=== PATIENT | male | born 1970 | race Caucasian/White ===

== ENCOUNTER 2019-01-22 20:58 | Emergency (ER) | payer OTHER ==
[~2019-01-22] VITALS: Ht 180.3 cm; Wt 64.9 kg
[~2019-01-22 20:58] MED LIST: FLEXERIL10 MG PO; HUMULIN N100 U/1 ML SQ; LAMICTAL200 MG PO; LANTI SQ; LISINOPRIL2.5 MG PO; NOVOLOG100 U/ML SC; ROC1I IV; SERTRALINE25 M1; TRAZODONE100 MG PO; TRE400 PO; VICODIN1 TA1 PO; XANAX0.5 MG PO
[2019-01-22 21:04] VITALS: Ht 180.3 cm; Wt 64.9 kg
[2019-01-22 22:03] LABS: BASOPHIL % 0.8 % (0-2); PLATELET COUNT 296 x10^3mcL (130-400); RED CELL DISTRIBUTION WIDTH 13.5 % (11.5-14.5)
[2019-01-22 22:14] LABS: CALCIUM 8.7 mg/dL (8.5-10.1); CARBON DIOXIDE 26.8 mmol/L (21-32); CHLORIDE SERUM 106 mmol/L (98-107); CREATININE SERUM 0.8 mg/dL (0.7-1.3); GFR1 > 60 mL/min; GLUCOSE SERUM 60 mg/dL (74-106); POTASSIUM SERUM 3.3 mmol/L (3.5-5.1); SODIUM SERUM 143 mmol/L (136-145)
[2019-01-22 22:18] LABS: ALBUMIN 4.2 g/dL (3.4-5.0); ALKALINE PHOSPHATASE 68 U/L (46-116); ALT/SGPT 21 U/L (16-63); AST/SGOT 8 U/L (15-37); BILIRUBIN TOTAL 0.36 mg/dL (0.20-1.00); LIPASE 56 IU/L (73-393); TOTAL PROTEIN, SERUM 7.1 g/dL (6.4-8.2)
[2019-01-23 00:38] VITALS: BP 118/68
== END 2019-01-23 00:38 | disposition home or self-care (01) ==
LOC: ED 20:58
PROVIDERS: Emergency Medicine
DX: E11.649 Type 2 diabetes mellitus with hypoglycemia without coma (principal); F17.210 Nicotine dependence, cigarettes, uncomplicated; I10 Essential (primary) hypertension; E78.00 Pure hypercholesterolemia, unspecified; F43.10 Post-traumatic stress disorder, unspecified; Z90.89 Acquired absence of other organs
CPT/HCPCS: 82962; J7030

== ENCOUNTER 2020-05-19 17:45 | Inpatient (IN) | payer OTHER ==
[~2020-05-19] VITALS: Ht 180.3 cm; Wt 66.9 kg
[~2020-05-19 17:45] MED LIST changes: -SERTRALINE25 M1; +SERTRALINE25 M1 PO
[2020-05-19 18:25] VITALS: Ht 180.3 cm; Wt 66.9 kg
--- NOTE | 2020-05-19 18:38 | NUR ---
PT BIBA FOR CHEST PAIN. 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 HE STATES SHORTNESS OF BREATH DURING PAIN EPISODE. PT CURRENTLY DENIES CHEST PAIN OR SHORTNESS OF BREATH. DENIES NAUSEA OR DIAPHORESIS. HX OF SMOKING AND HIGH CHOLESTEROL. PT IS AWAKE, ALERT, RESP E/U. ON FULL CM AND PULSE OX.
[2020-05-19 19:00] LABS: PLATELET COUNT 335 x10^3mcL (130-400); RED CELL DISTRIBUTION WIDTH 13.7 % (11.5-14.5)
[2020-05-19 19:12] LABS: CARBON DIOXIDE 27.1 mmol/L (21-32); CHLORIDE SERUM 104 mmol/L (98-107); CREATININE SERUM 0.9 mg/dL (0.7-1.3); GFR1 > 60 mL/min; GLUCOSE SERUM 94 mg/dL (74-106); POTASSIUM SERUM 3.5 mmol/L (3.5-5.1); SODIUM SERUM 141 mmol/L (136-145)
[2020-05-19 19:16] LABS: ALBUMIN 3.9 g/dL (3.4-5.0); ALKALINE PHOSPHATASE 97 U/L (46-116); ALT/SGPT 25 U/L (16-63); AST/SGOT 17 U/L (15-37); BILIRUBIN TOTAL 0.26 mg/dL (0.20-1.00); CHOLESTEROL 329 mg/dL (<200); CHOLESTEROL/HDL RATIO 7.3; HDL CHOLESTEROL 45 mg/dL (40-60); LIPASE 71 IU/L (73-393); TOTAL PROTEIN, SERUM 7.2 g/dL (6.4-8.2); TRIGLYCERIDES 151 mg/dL (<150)
--- NOTE | 2020-05-19 19:19 | NUR ---
PT REMINDED TO PROVIDE URINE SAMPLE
[2020-05-19 19:23] LABS: FREE T4 0.78 ng/dL (0.76-1.46); FREE THYROXINE INDEX 1.8 ug/dL (1.4-4.5); T4(THYROXINE) 5.7 ug/dL (4.7-13.3)
[2020-05-19 19:25] LABS: T3 TOTAL 1.05 ng/mL
--- NOTE | 2020-05-19 20:53 | NUR ---
FIRST CONTACT WITH PT AT 1925 TO ASSUME CARE, PT AAOX4, GCS15, VSS, NAD, REPORTS CP IS TOLERABLE AT THIS TIME, DENIES SOB/ABD PAIN/N/, CP IS 2/10 NONRADIATING, VSS, NAD, PT ON TELEMONITOR, SEE HEAD TO TOES ASSESSMENT FOR MROE DETAILS
--- NOTE | 2020-05-19 22:04 | NUR ---
PT RESTING IN BED WITH NO DISTRESS NOTED, VSS, UPDATED PT ON PLAN OF CARE, PT AWRE OF ADMISSION, UA SENT TO LAB
[2020-05-19 22:12] LABS: microscopic required? NO
[2020-05-19 22:39] LABS: UA SPECIFIC GRAVITY 1.015 (1.005-1.035); urine erythrocyte NEGATIVE (NEGATIVE)
--- NOTE | 2020-05-19 23:38 | NUR ---
VSS,NAD, RESTING IN BED COMFORTABLE, DENIES SOB/CP AT THIS TIME, AWAITS FOR ADMISISON, CONTINUE TO MONITOR
[2020-05-19 23:45] LABS: AMPHETAMINE QUAL UR NONE DETECTED (See below)
--- NOTE | 2020-05-20 00:17 | NUR ---
SBAR REPORT GIVEN TO RECEIVING RN KARL FOR PRIMARY RN NIDIA
--- NOTE | 2020-05-20 00:45 | NUR ---
RECEIVED PT FROM ER VIA LIZANDRO, ALERT AND ORIENTED X4, AMBULATORY. SITUATED IN BED. DENIED PAIN, APPEAR VERY ANXIOUS, PT REQUEST FOR TRAZODONE INFORM PATIENT WILL LET PRIMARY RN NIDIA KNOW. PLACE T54 NSR W/ HR 71 NOTED. IV TO LAC #18 G INTACT/PATENT, NO INFILTRATION NOTED. ORIENTED TO CALL LIGHT AND OFFER WARM BLANKET. ENDORSE TO NIDIA IGLESIAS.
[2020-05-20 00:51] VITALS: BP 113/73
[2020-05-20 05:55] VITALS: BP 133/88
--- NOTE | 2020-05-20 05:58 | NUR ---
PTS BLOOD SUGAR 157. REFUSING INSULIN. PT VERY AWARE OF HIS BLOOD SUGAR LEVELS AND WILL LET US KNOW WETHER HE GETS INSULIN OR NOT. BOTTLED APPLE JUICE AT HIS BEDSIDE FROM HOME.
[2020-05-20 07:42] LABS: CALCIUM 8.8 mg/dL (8.5-10.1); CARBON DIOXIDE 26.2 mmol/L (21-32); CHLORIDE SERUM 106 mmol/L (98-107); CREATININE SERUM 0.8 mg/dL (0.7-1.3); GFR1 > 60 mL/min; GLUCOSE SERUM 145 mg/dL (74-106); MAGNESIUM 1.9 mg/dL (1.8-2.4); PHOSPHOROUS 3.8 mg/dL (2.5-4.9); POTASSIUM SERUM 3.3 mmol/L (3.5-5.1); SODIUM SERUM 143 mmol/L (136-145)
--- NOTE | 2020-05-20 07:45 | NUR ---
RECEIVED PT FROM PM SHIFT. PT AWAKE AND RESTING COMFORTABLY AT THIS TIME. NO FACIAL DISTRESS OR SOB NOTED. PT IS A/OX4. ABLE TO MAKE NEEDS KNOWN. LUNG SOUNDS CTA. BREATHING E/U ON RA. TELE #54. NSR. DENIES CHEST PAIN AT THIS TIME. PULSES EVEN AND PALPABLE. NO EDEMA NOTED. ACTIVE BSX4. ABD SOFT AND NON DISTENDED. VOIDS FREELY. AMBULATORY BASELINE. SKIN INTACT. IV 18G TO LAC. SL. FLUSHES WITH NO DIFFICULTY. BED AT LOWEST POSITION. CALL BUTTON WITHIN REACH. WILL CONTINUE TO MONITOR.
[2020-05-20 07:46] LABS: PLATELET COUNT 284 x10^3mcL (130-400); RED CELL DISTRIBUTION WIDTH 12.8 % (11.5-14.5)
[2020-05-20 07:50] LABS: BASOPHIL % 2.5 % (0-2)
[2020-05-20 08:11] VITALS: BP 99/45
[2020-05-20 12:10] VITALS: BP 118/73
--- NOTE | 2020-05-20 16:01 | NUR ---
[facility] CALLED AND ASKED FOR PATIENT'S FACE SHEET, HISTORY AND PHYSICAL, LABS AND PERTINENT NOTES. ALL DOCUMENTS FAXED OVER TO ADDRESSED TO [facility]. CONFIRMATION FAX RECEIVED.
[2020-05-20 16:49] VITALS: BP 125/80
--- NOTE | 2020-05-20 18:37 | NUR ---
NO ACUTE DISTRESS DURING SHIFT. PT WAS SEEN AMBULATING DOWN THE [facility] SEVERAL TIMES WITH NO C/O CHEST PAIN. WILL ENDORSE CARE TO PM SHIFT FOR CONTINUITY OF CARE.
--- NOTE | 2020-05-20 19:24 | NUR ---
RECEIVED PT LAYING IN BED WITH HOB ELEVATED. AAOX4. TELE #54 READING SR AT 74. DENIES CHEST PAIN/CHEST PRESSURE. BREATHING IS EVEN AND UNLABORED ON RA. LUNG SOUNDS CTA. DENIES SOB. DENIES N/V/D. VOIDS FREELY. DENIES DYSURIA. AMBULATORY. SKIN INTACT. IV TO LAC PATENT AND INTACT. NO ERYTHEMA NOTED. DENIES ANY PAIN AT THIS TIME. BED IN LOWEST POSITION. CALL LIGHT WITHIN REACH. WILL CONTINUE TO MONITOR.
[2020-05-20 20:32] VITALS: BP 121/71
--- NOTE | 2020-05-20 21:57 | NUR ---
ROUTINE MEDICATIONS ADMINISTERED AND TOLERATED WELL. NO ACUTE DISTRESS NOTED. BREATHING IS EVEN AND UNLABORED ON RA. NO RESP DISTRESS NOTED. NORCO PRN ADMINISTERED FOR BACK PAIN. STATED 1/ PAIN AT THIS TIME. WILL CONTINUE TO MONITOR.
--- NOTE | 2020-05-20 23:02 | NUR ---
PT REQUESTING FOR BS TO BE CHECKED, BS 431. REQUESTING FOR COVERAGE. TOLD PT WILL SPEAK TO THE DR AND FOLLOW UP. PT VERBALIZES UNDERSTANDING.
--- NOTE | 2020-05-20 23:58 | NUR ---
ONE TIME DOSE ORDERED FOR LANTUS 5 UNITS. ADMINISTERED AT THIS TIME. PT IT NO ACUTE DISTRESS. WILL CONTINUE TO MONITOR.
[2020-05-21 05:31] VITALS: BP 98/61
--- NOTE | 2020-05-21 06:36 | NUR ---
PT RESTED COMFORTABLY THROUGHOUT THE NIGHT WITH NO ACUTE EVENTS OCURRING DURING THE SHIFT. BREATHING IS EVEN AND UNLABORED ON RA. NO RESP DISTRESS. DENIES ANY CHEST PAIN AT THIS TIME. IV PATENT AND INTACT. NO ERYTHEMA NOTED. COMFORT AND SAFETY MEASURES MAINTAINED. ALL NEEDS ASSESSED AND ATTENDED TO. WILL CONTINUE TO MONITOR AND ENDORSE CARE TO DAY SHIFT NURSE.
--- NOTE | 2020-05-21 07:20 | NUR ---
RECEIVED PT FROM ASSISTANT ANALYST. ASSESSED AND DOCUMENTED. DENIES PAIN THIS TIME. STABLE. SAFTEY PRECAUTIONS ARE IN PLACE. WILL MONITOR.
[2020-05-21 07:36] LABS: CALCIUM 8.4 mg/dL (8.5-10.1); CARBON DIOXIDE 25.6 mmol/L (21-32); CHLORIDE SERUM 105 mmol/L (98-107); CREATININE SERUM 0.7 mg/dL (0.7-1.3); GFR1 > 60 mL/min; GLUCOSE SERUM 134 mg/dL (74-106); MAGNESIUM 1.8 mg/dL (1.8-2.4); PHOSPHOROUS 3.9 mg/dL (2.5-4.9); POTASSIUM SERUM 3.4 mmol/L (3.5-5.1); SODIUM SERUM 140 mmol/L (136-145)
[2020-05-21 08:15] VITALS: BP 102/56
[2020-05-21 08:43] LABS: PLATELET COUNT 291 x10^3mcL (130-400); RED CELL DISTRIBUTION WIDTH 13.1 % (11.5-14.5)
[2020-05-21 08:45] LABS: BASOPHIL % 4.8 % (0-2)
--- NOTE | 2020-05-21 11:00 | NUR ---
PT IS STABLE. DENIES ANY PAIN. NO DISTRESS NOTED.
--- NOTE | 2020-05-21 11:14 | NUR ---
PATIENT REFUSED ECHO 10:30 AM. HE STATED THAT HE WANTS TO SPEAK TO A DOCTOR AND WANTS TO TRANSFER.
[2020-05-21 11:20] VITALS: BP 118/72
--- NOTE | 2020-05-21 15:18 | NUR ---
NO CALL RECEIVED JUST FROM THE LOBBY STATING THE CAREGIVER IS HERE TO PICK HIM UP. PATIENT HAS BEE RECIEVING THE ZOSYN AND WAS NOT RADY NO ONE KNEW SHE WAS COMING AND WHEN. THE REPORT THIS AM STATES HE WAS TO WAIT FOR A ISOLATION AREA FOR THE PATIEN TTO BE DEEMED UNINFECTIOUS AND A ROOM WAS NOT AVAILABLE TAT HAT TIME. REMOVED IV AND PATIENT DRESSED AND ALL BELONGINGS GIVEN TOT HE PATEITN AT TIME OF DISDCHAREG. PATIENT SIGNED HIS PAPERWORK THE CAREGIVER WOULD NOT. STAFF WITNESS THIS. PATIENT WAS IN NO DISTRESS AND NO CHARANJIT OF PJROBLEMS SWALLOWING AT TIME OF DISCHARGE.
--- NOTE | 2020-05-21 16:30 | NUR ---
PT RESTING IN BED COMFORTABLY. STABLE. DENIES ANY PAIN.
[2020-05-21 16:58] VITALS: BP 91/48
--- NOTE | 2020-05-21 18:30 | NUR ---
PT SHOWED HIS HOME MEDICATION SERTRALINE PO 50MD 2 TAB DAILY AND LAMICTAL 200MG PO DAILY HE TAKE. INFORMED PT HE CANNOT HOLD ON HIS MEDICATION IN THE [facility] BUT PT IS GETTING ANGRY AND REFUSED TO GIVE MEDICATION TO NURSE TO KEEP MED IN [facility]. INFORMED PT DONOT TAKE HIS OWN MEDICATIONS IN THE [facility] AND HE HAS BEEN GETTING THE MEDICATIONS, PT AGREED AND ASKED FOR HIS HOME DOSE FOR SERTRALINE. CALLED RAVINDRA STARKEY AND INFORMED HER EVERYTHING. RECEIVED ORDER FOR TO KEEP HIS SERTRALINE PO DOSE AND ORDERED. CHARGE NURSE ALSO AWARE. PT IS AWARE. PT IS STABLE.
--- NOTE | 2020-05-21 19:10 | NUR ---
PT REMAINS STABLE. DENIES ANY PAIN. GAVE REPORT TO LANDFILL GAS TECHNICIAN NURSE.
--- NOTE | 2020-05-21 19:55 | NUR ---
RECEIVED PT FROM DAY SHIFT RN. PT RESTING IN BED. A&O X4. DENIES PAIN OR DISTRESS AT THIS TIME. ON TELE #54, NSR. LUNG SOUNDS CLEAR BILATERAL. IV SALINE LOCK LAC INTACT AND PATENT. NO C/O PAIN OR DISCORMFORT AT ABDOMEN. PT INSTRUCTED TO USE CALL LIGHT AND PHONE, BED IN LOW POSITION. WILL CONTINUE TO MONITOR PT.
--- NOTE | 2020-05-21 20:35 | NUR ---
PT C/O NECK AND UPPER BACK PAIN 01/29, MEDICATION NORCO PO GIVEN. PT RESTING IN BED, WILL REASSESS AND MONITOR PT.
[2020-05-21 20:46] VITALS: BP 111/76
--- NOTE | 2020-05-21 23:55 | NUR ---
PT C/O BACK PAIN AT 01/29, MEDIATION TRAZODONE PO GIVEN. PT RESITNNG IN BED, WILL REASSESS AND MONITOR PT.
[2020-05-22 04:46] VITALS: BP 108/57
--- NOTE | 2020-05-22 06:56 | NUR ---
PT RESTING IN BED. PT NO C/O CHEST PAIN OR DISCOMFORT AT THIS TIME. DENIES SOB, N/V. SAFETY MEASURES IN PLACE. WILL ENDORSE CARE TO DAY SHIFT RN.
--- NOTE | 2020-05-22 07:20 | NUR ---
RECEIVED PT FROM AIR TRAFFIC CONTROL MANAGER. ASSESSED AND WILL DOCUMENT. DENIES ANY PAIN THIS TIME. PT WILL HAVE STRESS TEST TODAY AFTER NOON. INSTRUCTED PT NO COFFEE WITH BREAKFAST, NPO FOR LUNCH. NO DISTRESS NOTED. SAFTEY PRECAUTIONS ARE IN PLACE. WILL MONITOR.
[2020-05-22 07:51] LABS: CALCIUM 8.9 mg/dL (8.5-10.1); CARBON DIOXIDE 26.6 mmol/L (21-32); CHLORIDE SERUM 101 mmol/L (98-107); CREATININE SERUM 0.9 mg/dL (0.7-1.3); GFR1 > 60 mL/min; GLUCOSE SERUM 363 mg/dL (74-106); POTASSIUM SERUM 4.7 mmol/L (3.5-5.1); SODIUM SERUM 135 mmol/L (136-145)
[2020-05-22 08:44] VITALS: BP 110/60
[2020-05-22 09:14] LABS: BASOPHIL % 0.7 % (0-2); PLATELET COUNT 287 x10^3mcL (130-400); RED CELL DISTRIBUTION WIDTH 13.9 % (11.5-14.5)
[2020-05-22 11:55] VITALS: BP 104/67
--- NOTE | 2020-05-22 14:00 | NUR ---
NUCLEAR MED STAFF TOOK PT TO RADIOLOGY FOR STRESS TEST VIA W/CSy BECERRA.
--- NOTE | 2020-05-22 15:45 | NUR ---
RECEIVED PT FROM [email or web address][employer]la AFTER STRESS TEST. PT IS STABLE. DENIES ANY PAIN.
--- NOTE | 2020-05-22 17:00 | NUR ---
PT BS IS 476, REPEATED 468. PT SAID HE JUST ATE IN [facility] DEPT. INFORMED RN OUTPATIENT SURGERY ABOUT THAT, SHE SAID TO GIVE 12U REG INSU ONLY. PT IS STABLE.
--- NOTE | 2020-05-22 17:20 | NUR ---
INFORMED ABOUT STRESS TEST, HE SAID HE WILL PUT ORDER FOR S.S FOR TRANSFER PT TO [facility] FOR CARDIAC CATH. CALLED FINANCIAL COACH AND LEFT MESSAGE. PT IS STABLE. DENIES CHEST PAIN.
--- NOTE | 2020-05-22 19:05 | NUR ---
PT REMAINS STABLE. DENIES CHEST PAIN. GAVE REPORT TO WORK CHECKER NURSE.
--- NOTE | 2020-05-22 20:00 | NUR ---
PATIENT RECEIVED IN BED DURING HANDS OFF BEDSIDE REPORT ALERT AND ORIENTED X4, SPEECH CLEAR. PATIENT IS BREATHING E/U, BS CLEAR ALL LUCERO,DENIED SOB ON EXERTION NOR AT REST, SATURATING BETWEEN 97-100% ON ROOM AIR. ABDOMEN SOFT NONDISTENDED ACTIVE BS ALL QUADRANTS, DENIED N/V, TOLERATING CCHO DIET. PATIENT PERFORMS AND PARTICIPATE WITH ADL'S UNASSISTED, AMBULATORY WITH STEADY GAIT. SALINE LOCK TO LFA PATENT AND INTACT, SECURED WITH TAPE, FLUSHED WELL WITH NS NO RESISTANCE ENCOUNTERED. PATIENT INFORMED ABOUT POC THIS SHIFT. ALSO MENTIONED ABOUT PLAN OF TRANSFER TO CONTRACTED FACILITY FOR CARDIAC CATHETERIZATION[facility] WORKING ON ORDER. SAFETY PRECAUTIONS MAINTAINED. PATIENT WANTING TO TAKE A SHOWER, INFORMED THAT WE WILL CALL RESIDENT TO GET ORDER. ALL CONCERNS AND QUESTIONS ADDRESSED. WILL CONTINUE TO MONITOR.
--- NOTE | 2020-05-22 21:04 | NUR ---
SCHEDULED MEDICATIONS ADMINISTERED. PATIENT INFORMED ABOUT EACH MEDS ACTION AND PURPOSES PRIOR. TOOK PILLS WELL. PATIENT ALSO COMPLAINED OF GENERALIZED BODY PAIN , MEDICATED PRN. WILL CHECK EFFECTIVENES.
[2020-05-22 21:37] VITALS: BP 110/68
--- NOTE | 2020-05-22 21:57 | NUR ---
PATIENT CHECKED THIS TIME STATED PAIN IS AT 1/10 COMFORTABLE. STILL AWAITING FOR ORDER TO SHOWER.
--- NOTE | 2020-05-22 22:39 | NUR ---
PATIENT TAKING A SHOWER AT THIS TIME. ORDER WAS GIVEN EARLIER BY RESIDENT.
--- NOTE | 2020-05-23 00:07 | NUR ---
PATIENT CALLED STATED THAT HE FEELS BLOOD SUGAR IS LOW AND SWEATY, CHECK BLOOD SUGAR WAS 46 AND REPEATED WAS 46, PROTOCOL INITIATED. NOTIFIED DR MASCORRO. D50 1VP GIVEN. PATIENT WAS AWAKE,ALERT AND ORIENTED DURING THE EPISODE. WILL RE-CHECK IN 30 MINS.
--- NOTE | 2020-05-23 00:35 | NUR ---
RE-CHECKED BLOOD SUGAR AFTER D50 WAS 114. PATIENT GIVEN PM SNACK OF SANDWICH AND ORANGE JUICE.
--- NOTE | 2020-05-23 01:41 | NUR ---
PATIENT CALLED STATED FEELING SWEATY AND WEAK, PATIENT IS ORIENTED AND AWAKE AND ALERT. BLOOD SUGAR CHECKED WAS 31 AND REPEATED WAS WAS 32, PROTOCOL INITIATED. WILL CALL RESIDENT TO REPORT. WILL CHECK BS IN 30 MINS.
--- NOTE | 2020-05-23 03:57 | NUR ---
RE-CHECKED BLOOD SUGAR AFTER LAST EPISODE OF HYPOGLYCEMIA AND D50 GIVEN IVP RESULT WAS 237, PATIENT COMFORTABLE.WILL CONTINUE TO MONITOR.
--- NOTE | 2020-05-23 04:30 | NUR ---
SLEEPING SOUNDLY NO DISTRESS. WILL CONTINUE TO MONITOR.
[2020-05-23 05:11] VITALS: BP 101/48
--- NOTE | 2020-05-23 06:20 | NUR ---
PATIENT SLEPT OFF AND ON DURING THE SHIFT, RESTED GOOD STATED. OFFERED NO COMPLAINT OF PAIN THIS AM, AMBULATORY WITH STEADY GAIT. SALINE LOCK TO LEFT AC PATENT AND INTACT FLUSHED WITH NS NO RESISTANCE AND INFILTRATION NOTED. SAFETY PRECAUTIONS MAINTAINED. WILL ENDORSE CONTINUITY OF CARE TO INCOMING NURSE.
--- NOTE | 2020-05-23 07:27 | NUR ---
HANDS OFF BEDSIDE REPORT AND INTRODUCTION PERFORMED WITH INCOMING NURSE ANTONIA AND LIUDMILA FOR CONTINUITY OF PATIENT CARE.
--- NOTE | 2020-05-23 07:35 | NUR ---
RECEIVED PATIENT FROM VOCATIONAL TRAINING TEACHER NURSE. PATIENT RESTING IN BED. TELE# 54 SR. DENIES PAIN, HEADACHE, N/V. LUNG SOUND CLEAR, BRETHING EVEN, UNLABORED, NO ACUTE RESP DISTRESS NOTED, AT ROOM AIR. LAST BM 05/21, BOWEL SOUND ACTIVE X 4 QUADS, VOIDS. SKIN CDI, PINK AND WARM. NO EDEMA NOTED. PHERIPHERAL PULSES PALPABLE. IV ACCESS TO LAC 18G HL, PATENT. CALL LIGHT WITHIN REACH, BED AT LOWEST POSITION.
[2020-05-23 08:32] VITALS: BP 108/68
[2020-05-23 12:17] VITALS: BP 113/68
--- NOTE | 2020-05-23 15:51 | NUR ---
C/O NECK AND BACK PAIN 12/29. NORCO GIVEN
[2020-05-23 16:06] VITALS: BP 116/70
--- NOTE | 2020-05-23 18:12 | NUR ---
SPOKE TO PT'S MOTHER. UPDATE HER THAT [employer] WORKING ON THE TRANSFER TO [place]. WILL UPDATE PATEINT/FAMILY WE HAVE AN UPDATE FROM [employer]
--- NOTE | 2020-05-23 18:26 | NUR ---
PT RESTING IN BED. DENIES PAIN. SOB, NO RESP DISTRESS NOTED. DENIES N/V. IV ACCESS TO LAC HL, PATENT, INTACT, WAITING FOR TINNIE TO ARRANGE THE BED TO TRANSFER. SAFETY MEASURE IN PLACE, CALL LIGHT WITHIN REACH. WILL ENDORSE TO LOCK STITCH CHANNELER NURSE
--- NOTE | 2020-05-23 19:07 | NUR ---
NURSING CO-SIGN THE DOCUMENTATION ENTERED BY THE RN CHUY HAS BEEN REVIEWED. REVIEWED/CO-SIGNED BY: Zulema Trinidad DOCUMENTATION DONE BY:NELLA NUR
--- NOTE | 2020-05-23 19:38 | NUR ---
RECEIVED PT FROM DAY SHIFT NURSE.PT SEEN AMBULATING THROUGH HALLWAY DURING SHIFT CHANGE. PT A/OX4. ABLE TO MAKE NEEDS KNOWN. SPEECH CLEAR. PT REPORTS BACK AND NECK PAIN AT THIS TIME, WILL MEDICATE PER MAR. ON TELE#54 READING NSR. PT DENIES CHEST PAIN OR PRESSURE AT THIS TIME. PULSES PALPABLE. NO EDEMA NOTED. RR EVEN AND UNLABORED ON RA. PT DENIES SOB OR DIFFICULTY BREATHING. VOIDS FREELY. AMBULATORY. SKIN INTACT. IV TO LAC SALINE LOCKED, PATENT AND INTACT. NO SIGNS OF ACUTE DISTRESS NOTED. INSTRUCTED PT TO USE CALL LIGHT IF NEEDING ASSISTANCE. WILL CONTINUE TO MONITOR.
[2020-05-23 20:41] VITALS: BP 111/62
--- NOTE | 2020-05-23 22:22 | NUR ---
SPOKE WITH [facility] REGARDING TRANSFERING PATIENT TONIGHT. FAXED OVER PAPERWORK REQUESTED. WAITING FOR BED PLACEMENT.
--- NOTE | 2020-05-24 01:27 | NUR ---
PT AWAKE, RESTING IN BED AT THIS TIME. NO SIGNS OF ACUTE DISTRESS NOTED. RR EVEN AND UNLABORED. NO C/O PAIN OR DISCOMFORT AT THIS TIME. CALL LIGHT WITHIN REACH. WILL CONTINUE TO MONIOTR.
[2020-05-24 05:31] VITALS: BP 111/65; BP 124/78
--- NOTE | 2020-05-24 06:32 | NUR ---
PT AWAKE WATCHING TV AT THIS TIME. NO SIGNS OF ACUTE DISTRESS NOTED. RR EVEN AND UNLABORED ON RA. PT DENIES PAIN OR DISCOMFORT. CALL LIGHT WITHIN REACH. WILL ENDORSE CARE TO ONCOMING SHIFT NURSE.
--- NOTE | 2020-05-24 07:14 | NUR ---
RECEIVED PT FROM SWITCHER NURSE, PT AWAKE AND A/O X 4, APPEAR MILD ANXIOUS. , TELE #54, LUNG CTA, BREATHING EVEN, UNLABORED, AT ROOM AIR. PERIPHERAL PULSE PALPABLE, SKIN WARM PINK CDI, CAP REFILL <3SEC. LAST BM 05/23/20, BOWEL SOUND ACTIVE [id number], VOIDS, DENIES PAIN, SOB, N/V. IV ACCESS TO LAC HL, PATENT. SAFETY MEASURE IN PLACE, CALL LIGHT WITHIN REACH, BED AT LOWEST POSITION.
[2020-05-24 07:37] VITALS: BP 134/78
[2020-05-24] MEDS ORDERED: LIPITOR80 MG PO (10:23)
[2020-05-24] MEDS ORDERED: ECO81 PO (10:23)
[2020-05-24 11:59] VITALS: BP 126/76
[2020-05-24 16:24] VITALS: BP 122/74
--- NOTE | 2020-05-24 16:57 | NUR ---
CALLED [facility] [phone] TO GIVE REPORT PRIOR TRANFER
--- NOTE | 2020-05-24 19:09 | NUR ---
PT AWAKE, ALERT AND ORIENTED. DENIES PAIN OR DISCOMFORT AT THIS TIME. NO RESP DISTRESS NOTED. IV TO LAC 18G HL,PATENT. PT IS WAITING FOR TRANSFERING TO [facility]. VS STABLE. SAFETY MEASURE IN PLACE. PATIENT BELONG WITH PATIENT WILL ENDORSE TO HAND FABRIC CUTTER NURSE.
--- NOTE | 2020-05-24 19:23 | NUR ---
C/O NECK PAIN 12/29, KISHORECO GIVEN
--- NOTE | 2020-05-24 19:26 | NUR ---
RESTING IN NO DISTRESS, MEDICATED WITH NORCO FOR NECK PAIN.VS WNL. HL PATENT. STILL WAITING FOR TRANSPORTATION TO [place]. WILL CONTINUE TO MONITOR.
--- NOTE | 2020-05-24 20:55 | NUR ---
PT TRANSFERED TO [facility] VIA AMBULANCE-ACLS, IN NO RESP. DISTRESS. AWAKE ALERT AND ORIENTED. VS STABLE. NO C/O PAIN OR DISCOMFORT. HL PATENT. PERSONAL BELONGINGS TAKEN WITH FAMILY.
== END 2020-05-24 20:53 | disposition short-term general hospital (02) | DRG 206 ==
LOC: ED 17:45 → DU 20:15
PROVIDERS: Specialist; ADMIT Family Medicine; ATTEND Family Medicine
DX: M94.0 Chondrocostal junction syndrome [Tietze] (principal); I20.0 Unstable angina; E11.65 Type 2 diabetes mellitus with hyperglycemia; Z20.828 Contact with and (suspected) exposure to other viral communicable diseases; I10 Essential (primary) hypertension; E78.00 Pure hypercholesterolemia, unspecified; F17.200 Nicotine dependence, unspecified, uncomplicated; F32.9 Major depressive disorder, single episode, unspecified; E78.5 Hyperlipidemia, unspecified
CPT/HCPCS: 82962; 83880; 84439; A9500; G0378; J1815; J2785; J3490; J7030